=== PATIENT | male | born 1955 | race Two or more races ===

== ENCOUNTER 2021-11-19 09:55 | Emergency (ER) | payer OTHER, BC ==
[~2021-11-19] VITALS: Ht 170.2 cm; Wt 72.6 kg
[2021-11-19] MEDS ORDERED: NITROSTAT0.3 MG (10:14)
[2021-11-19] MEDS ORDERED: LIPITOR40 M1 (10:22)
== END 2021-11-19 13:49 | disposition home or self-care (01) ==
LOC: ER 09:55
DX: R07.89 Other chest pain (principal); I10 Essential (primary) hypertension